=== PATIENT | female | born 2000 | race Two or more races ===

== ENCOUNTER → 2025-04-04 | Outpatient (CLI) | payer MEDICAID, SELFPAY ==
--- NOTE | 2025-04-04 | XR_ITS ---
EXAMINATION: Lumbar spine 7 views TECHNIQUE: AP, lateral, standing lateral flexion, standing lateral extension,: Lateral lower lumbar spine, RPO, LPO 7 views Date and time: April 04, 2025, 1124 hours INDICATIONS: Lower back pain radiating to the legs beginning 2 weeks ago. FINDINGS: Adequate bone density. Lumbar dextroscoliosis 10 degrees No significant facet arthropathy No lumbar fracture Mild disc narrowing L5-S1 Adequate range of motion between flexion and extension IMPRESSION: Mild disc narrowing L5-S1
== END | disposition home or self-care (01) ==
LOC: CDIM 10:37
PROVIDERS: PCP Nurse Practitioner Primary Care; Referring Provider Nurse Practitioner Primary Care; Visit Provider Nurse Practitioner Primary Care
DX: M48.07 Spinal stenosis, lumbosacral region (principal)
CPT/HCPCS: 72114